=== PATIENT | male | born 1980 | race Two or more races ===

== ENCOUNTER 2019-02-15 17:30 | Emergency (ER) | payer SELFPAY ==
[2019-02-15] VITALS (8 sets, daily range): BP systolic 144–192; BP diastolic 90–122
[~2019-02-15] VITALS: Ht 182.9 cm; Wt 90.7 kg
--- NOTE | 2019-02-15 17:30 | NUR ---
ED Nurse Note: pt brought by RA with [employer] due to behavior changes. per [employer], aunt called 911 bc pt told her that he will kill himself. pt told aunt that he will swallowing broken glasses. upon arrival, pt is non-verbal and refused to answer all questions. pt cooperative and follow command. pt undressed and all the belongings locked in psych locker #1. pt on [facility] gown with his own boxer. skin warm to touch. respirations even and non-labored noted. no open wound noted. Ambika graff EMT at the bed side. on 5150 Hold. will assess more later.
--- NOTE | 2019-02-15 17:48 | Emergency Room Report ---
History of Present Illness General Chief Complaint: Behavioral Complaint Source: EMS, Law Enforcement Present Illness HPI Patient is a 38-year-old male brought in by EMS after increased bizarre behavior. Patient was noted to speak both [place]yanese and Kazakh. He was noted to have been uncooperative with history. History is entirely obtained from police. Patient was noted to have reported suicidal thoughts to family member. He had not been noted to have prior psychiatric illness. Allergies: Coded Allergies: UNABLE TO ASSESS (Unverified , 02/15/19) PT. IS NOT ANSWERING QUESTIONS Patient History Past Medical History: see triage record Reviewed Nursing Documentation: PMH: Agreed; PSxH: Agreed Review of Systems All Other Systems: negative except mentioned in HPI Physical Exam Vital Signs Date Time Temp Pulse Resp B/P (MAP) Pulse Ox O2 Delivery O2 Flow Rate FiO2 02/15/19 17:27 98.1 128 25 99 Room Air Sp02 EP Interpretation: reviewed, normal General Appearance: alert/responsive, no apparent distress, GCS 15, non-toxic Head: atraumatic Eyes: normal eye exam, PERRL, lids + conjunctiva normal ENT: normal ENT inspection, hearing intact, no angioedema Neck: supple/symm/no masses, no meningismus Respiratory: effort normal, no wheezing, chest symmetrical Cardiovascular: regular rate, rhythm, no edema Cardiovascular #2: 2+ carotid (R), 2+ carotid (L), 2+ dorsalis pedis (R), 2+ dorsalis pedis (L) Gastrointestinal: non-tender, no mass, non-distended, no rebound/guarding, normal bowel sounds Musculoskeletal: gait & station normal, strength & tone normal, normal ROM, non -tender Neurologic: normal inspection, CN II-XII intact, oriented x3, sensory intact Psychiatric: anxious Skin: no rash, well hydrated Lymphatic: normal inspection Medical Decision Making Diagnostic Impression: Primary Impression: Psychosis Additional Impression: Substance abuse ER Course Patient presented for bizarre behavior. Differential diagnoses include substance abuse, psychosis, bipolar disorder, depression, malingering. CT imaging of the head was ordered. Patient laboratory testing was unremarkable. CT head read by radiology was negative. Patient was given Zyprexa. Patient appeared calm throughout ED stay. I was unable to obtain any information from patient due to poor cooperation. Patient was noted to be on psychiatric hold placed by [employer]. Patient will likely be transferred to psychiatric hospital for further evaluation and treatment of patients mental health crisis. Labs Test 02/15/19 17:55 White Blood Count 7.0 K/UL (4.8-10.8) Red Blood Count 5.10 M/UL (4.70-6.10) Hemoglobin 14.8 G/DL (14.2-18.0) Hematocrit 43.7 % (42.0-52.0) Mean Corpuscular Volume 86 FL (80-99) Mean Corpuscular Hemoglobin 29.0 PG (27.0-31.0) Mean Corpuscular Hemoglobin Concent 33.9 G/DL (32.0-36.0) Red Cell Distribution Width 11.7 % (11.6-14.8) Platelet Count 524 K/UL (150-450) Mean Platelet Volume 4.9 FL (6.5-10.1) Neutrophils (%) (Auto) 70.2 % (45.0-75.0) Lymphocytes (%) (Auto) 21.3 % (20.0-45.0) Monocytes (%) (Auto) 7.0 % (1.0-10.0) Eosinophils (%) (Auto) 0.2 % (0.0-3.0) Basophils (%) (Auto) 1.2 % (0.0-2.0) Urine Color Yellow Urine Appearance Clear Urine pH 5 (4.5-8.0) Urine Specific [place] 1.025 (1.005-1.035) Urine Protein 2+ (NEGATIVE) Urine Glucose (UA) Negative (NEGATIVE) Urine Ketones 1+ (NEGATIVE) Urine Blood 1+ (NEGATIVE) Urine Nitrite Negative (NEGATIVE) Urine Bilirubin Negative (NEGATIVE) Urine Urobilinogen 1 MG/DL (0.0-1.0) Urine Leukocyte Esterase 1+ (NEGATIVE) Urine RBC 5-10 /HPF (0 - 0) Urine WBC 2-4 /HPF (0 - 0) Urine Squamous Epithelial Cells None /LPF (NONE/OCC) Urine Bacteria Few /HPF (NONE) Sodium Level 141 MMOL/L (136-145) Potassium Level 3.7 MMOL/L (3.5-5.1) Chloride Level 102 MMOL/L (98-107) Carbon Dioxide Level 28 MMOL/L (21-32) Anion Gap 11 mmol/L (5-15) Blood Urea Nitrogen 16 mg/dL (7-18) Creatinine 1.1 MG/DL (0.55-1.30) Estimat Glomerular Filtration Rate > 60 mL/min (>60) Glucose Level 144 MG/DL (74-106) Calcium Level 9.6 MG/DL (8.5-10.1) Total Bilirubin 0.4 MG/DL (0.2-1.0) Aspartate Amino Transf (AST/SGOT) 17 U/L (15-37) Alanine Aminotransferase (ALT/SGPT) 27 U/L (12-78) Alkaline Phosphatase 70 U/L (46-116) Total Protein 7.9 G/DL (6.4-8.2) Albumin 4.2 G/DL (3.4-5.0) Globulin 3.7 g/dL Albumin/Globulin Ratio 1.1 (1.0-2.7) Salicylates Level 0.7 ug/mL (2.8-20) Urine Opiates Screen Negative (NEGATIVE) Acetaminophen Level < 2 MCG/ML (10-30) Urine Barbiturates Screen Negative (NEGATIVE) Phencyclidine (PCP) Screen Negative (NEGATIVE) Urine Amphetamines Screen Positive (NEGATIVE) Urine Benzodiazepines Screen Negative (NEGATIVE) Urine Cocaine Screen Negative (NEGATIVE) Urine Marijuana (THC) Screen Negative (NEGATIVE) Serum Alcohol < 3 mg/dL Last Vital Signs Date Time Temp Pulse Resp B/P (MAP) Pulse Ox O2 Delivery O2 Flow Rate FiO2 02/15/19 17:27 98.1 128 25 99 Room Air Status: unchanged Disposition: XFER TO PSYCH HOSP/UNIT Condition: Stable Cameron Nassar MD February 15, 2019 17:48
--- NOTE | 2019-02-15 17:57 | NUR ---
ED Nurse Note: NADIYA LEMUS- AUNT
[2019-02-15 18:30] LABS: APPEARANCE,URINE CLEAR; BASOPHILS % (AUTO) 1.2 % (0.0-2.0); BILIRUBIN, URINE NEGATIVE (NEGATIVE); EOSINOPHILS % (AUTO) 0.2 % (0.0-3.0); GLUCOSE, URINE (UA) NEGATIVE (NEGATIVE); HEMATOCRIT 43.7 % (42.0-52.0); HEMOGLOBIN 14.8 G/DL (14.2-18.0); KETONES,URINE 1+ (NEGATIVE); LEUKOCYTE ESTERASE ,URINE 1+ (NEGATIVE); LYMPHOCYTES % (AUTO) 21.3 % (20.0-45.0); MEAN CORPUSCULAR VOLUME 86 FL (80-99); NEUTROPHILS % (AUTO) 70.2 % (45.0-75.0); NITRITE,URINE NEGATIVE (NEGATIVE); PH,URINE 5 (4.5-8.0); PLATELET COUNT 524 K/UL (150-450); PROTEIN,URINE 2+ (NEGATIVE); RED CELL DISTRIBUTION WIDTH 11.7 % (11.6-14.8); UROBILINOGEN,URINE 1 MG/DL (0.0-1.0)
[2019-02-15 18:34] LABS: ANION GAP 11 mmol/L (5-15); BLOOD UREA NITROGEN 16 mg/dL (7-18); CALCIUM 9.6 MG/DL (8.5-10.1); CARBON DIOXIDE 28 MMOL/L (21-32); CHLORIDE 102 MMOL/L (98-107); CREATININE 1.1 MG/DL (0.55-1.30); POTASSIUM 3.7 MMOL/L (3.5-5.1); SODIUM 141 MMOL/L (136-145)
[2019-02-15 18:35] LABS: COLOR,URINE YELLOW
[2019-02-15 18:38] LABS: ALANINE AMINOTRANSFERASE 27 U/L (12-78); ALBUMIN 4.2 G/DL (3.4-5.0); ALBUMIN/GLOBULIN RATIO 1.1 (1.0-2.7); ALKALINE PHOSPHATASE 70 U/L (46-116); ASPARTATE AMINO TRANSFERASE 17 U/L (15-37); BILIRUBIN,TOTAL 0.4 MG/DL (0.2-1.0)
--- NOTE | 2019-02-15 19:13 | NUR ---
HAND-OFF: Report given to MYAH Garland.
--- NOTE | 2019-02-15 19:15 | NUR ---
NURSE NOTES:Patient received report from 7p davis graff .patient non verbal and refused to answers all questions vital signs T 97.9, P 120/min.R 18/MIN., B/P elevated 160/122 mmHg spo2 98% ER Primary nurse KARRI Fontaine Notified and aware ans states notified and aware. will continue to monitor.
--- NOTE | 2019-02-15 19:31 | NUR ---
ED Nurse Note: Got report from rio Hernandez assessed the patient. Patient still nonverbal, patient's BP 198/122, ER MD aware.
--- NOTE | 2019-02-15 19:50 | NUR ---
ED Nurse Note: Patient went for CT
--- NOTE | 2019-02-15 20:06 | NUR ---
ED Nurse Note: patient is back from CT
--- NOTE | 2019-02-15 20:15 | NUR ---
NURSE NOTES:Patient vital signs T97.5 P121 /min R18/MIN. B/P Elevated 165/109 mmhg spo2 98% KARRI Fontaine Notified and aware.
--- NOTE | 2019-02-15 23:48 | NUR ---
NURSE NOTES:Patient vital sign T 98.0 P93/min R18/min. B/P 148//90 SPO2 97 % KARRI Mcwilliams ER Notified and aware . will continue to monitor .
--- NOTE | 2019-02-16 00:05 | NUR ---
ED Nurse Note: Patient is sleeping, no acute disstress noticed.
--- NOTE | 2019-02-16 03:30 | NUR ---
NURSE NOTES: Nnamdi 1:1 jason Burch LVN @ Bedside at all times . to maintained patient safety.
--- NOTE | 2019-02-16 03:32 | NUR ---
ED Nurse Note: Patient was transfered to [facility] by [facility] Patient still nonverbal, refused to answer any questions, VSS at this time. Patient was transfered by S protocol, all belongings were transfered with the patient.
--- NOTE | 2019-02-16 03:32 | NUR ---
Note carterdiego in ED - 02/16/19 at 1915 by ISABELA ED Nurse Note: Patient was transfered to [facility] [place] by [address]. Patient still nonverbal, refused to answer any questions, VSS at this time. Patient was transfered by ACLS protocol, all belongings were transfered with the patient.
[2019-02-16 03:40] VITALS: BP 146/91
[2019-02-16 03:41] VITALS: BP 146/91
--- NOTE | 2019-02-16 10:40 | Diagnostic Imaging Report ---
Indication: Altered mental status Technique: Contiguous 5 mm thick transaxial imaging of the head obtained in a Siemens Sensation [address] scanner. Soft tissue and bone windows generated. Automatic Exposure Control was utilized. Total Dose length Product (DLP): 2917.[address] Dose Index Volume (CTDIvol): 70.38,70.38 mGy Comparison: none Findings: The size and configuration of the cortical sulci, basal cisterns, and ventricles are within normal limits for age. There is no mass effect, midline shift, or edema identified. There is no evidence of acute hemorrhage or abnormal intra-axial or extra-axial fluid collections. The bones and soft tissues are unremarkable. Impression: No mass effect, edema or acute bleed. [facility] has communicated the preliminary results to the Emergency Department. Their findings are largely concordant with this report. The CT scanner at [facility] is accredited by the [employer] and the scans are performed using dose optimization techniques as appropriate to a performed exam including Automatic Exposure control.
== END 2019-02-16 03:44 ==
LOC: EDBD 17:30 → EMR 22:02
DX: F29 Unspecified psychosis not due to a substance or known physiological condition (principal); F15.10 Other stimulant abuse, uncomplicated
CPT/HCPCS: 36415; 70450; 80053; 80307; 81003; 82962; 85025; 99285; G0480; 80329